=== PATIENT | female | born 1965 | race Caucasian/White ===

== ENCOUNTER → 2017-09-26 | Outpatient (CLI) | payer OTHER ==
--- NOTE | 2017-09-26 12:43 | CT ---
EXAMINATION TYPE: CT abdomen pelvis w con DATE OF EXAM: 09/26/2017 COMPARISON: None HISTORY: Abdominal pain CT DLP: 1263 mGycm CONTRAST: CT scan of the abdomen and pelvis is performed with Oral Contrast and with IV Contrast, patient injec cony with 100 mL of Isovue 300. FINDINGS: LUNG BASES-: No visible nodule. No infiltrate. LIVER/GB: No calcified gallstones. Hypoattenuating lesion at the dome of the liver measuring 1.9 cm . Lesion is nonspecific. The liver is otherwise homogeneous. Biliary tree is of normal caliber. PANCREAS: No inflammation. No distinct mass. SPLEEN: No splenic enlargement. No lesion seen. ADRENALS: No nodule. No thickening. KIDNEYS/BLADDER: No hydronephrosis. No nephrolithiasis. No distinct renal mass. Urinary bladder g rossly unremarkable. BOWEL: Normal appendix. Normal bowel caliber. No inflammation. GENITAL ORGANS: No gross abnormality. LYMPH NODES: No greater than 1cm abdominal or pelvic lymph nodes are appreciated. AORTA: No significant abnormality. OSSEOUS STRUCTURES: No significant abnormality is seen. OTHER: No evidence for hernia. IMPRESSION: 1. Nonspecific hypoattenuating hepatic lesion. Consider ultrasound correlation. 2. No acute intra-abdominal process to account for the patient's abdominal pain.
== END | disposition home or self-care (01) ==
LOC: RADCTMAIN 10:26
PROVIDERS: ATTEND Family Medicine
DX: K76.9 Liver disease, unspecified (principal)
CPT/HCPCS: 74177; Q9967

== ENCOUNTER → 2017-10-05 | Outpatient (CLI) | payer OTHER ==
--- NOTE | 2017-10-05 08:32 | US ---
EXAMINATION TYPE: US liver DATE OF EXAM: 10/05/2017 COMPARISON: Correlation CT 09/26/2017 CLINICAL HISTORY: 51-year-old female K76.9 Liver disease, unspecified. Abnormal CT TECHNIQUE: Multiple sonographic images of the right upper quadrant are obtained. FINDINGS: EXAM MEASUREMENTS: Liver Length: 12.4 cm Gallbladder Wall: 0.3 cm CBD: 0.5 cm Right Kidney: 12.4 x 3.9 x 4.8 cm Pancreas: Only the pancreatic head, neck, and a portion of the pancreatic body are visualized. The re mainder of the pancreatic body and tail are obscured due to bowel gas shadowing. The main pancreatic duct is slightly prominent at 2 mm but still within normal limits. Liver: There is a lobulated cystic-appearing area possibly with some internal septation at the right hepatic dome measuring 1.7 x 1.2 x 1.7 cm corresponding to the CT finding. Liver is normal size with homogeneous echotexture.. Gallbladder: No abnormal distention, wall thickening, pericholecystic fluid, or shadowing calculi. Evidence for sonographic Mcgill's sign: No CBD: wnl Right Kidney: No hydronephrosis. IMPRESSION: The CT finding corresponds to a lobulated cyst, possibly with a thin internal septation/minimal compl exity measuring 1.7 cm. 6-12 month follow-up ultrasound can be performed.
== END | disposition home or self-care (01) ==
LOC: RADUSWWP 07:08
PROVIDERS: ATTEND Family Medicine
DX: K76.89 Other specified diseases of liver (principal)
CPT/HCPCS: 76705

== ENCOUNTER → 2017-11-08 | Day surgery (SDC) | payer OTHER ==
[2017-11-05 15:18] VITALS: BMI 28.7
[~2017-11-08] MED LIST: LACTATED RINGERS 1,000 ML IV ONE; LIDOCAINE 1% INJ 10MG/ML (20 ML MDV) ONE; PROPOFOL 10 MG/ML 20 ML VIAL IV ONE
[2017-11-08 09:11] VITALS: RESP 16; TEMP 97.7
[2017-11-08 10:27] VITALS: BP 108/63; PULSE 62
--- NOTE | 2017-11-08 11:39 | P.PCN ---
Date of Procedure: 11/08/17 Procedure(s) Performed: Procedure: 1. Esophagogastroduodenoscopy and biopsy. 2. Total colonoscopy and biopsy. Preoperative diagnosis: Epigastric pain, diarrhea and screening for colon cancer. Postoperative diagnosis: 1. Small sliding hiatal hernia with no obvious esophagitis or complicated reflux disease. 2. Mild gastritis. 3. Normal colon and terminal ileum. 4. Biopsies obtained from the duodenum, antrum, esophagus, terminal ileum and random colon. Preparation: HalfLytely prep. Sedation: Was provided by anesthesia. Brief clinical history: The patient is a 52-year-old female who has been having issues with abdominal pain that has not responded consistently to omeprazole therapy. She also had diarrhea for many years as far as she could remember. This evaluation was scheduled for screening for neoplasia and to rule out inflammatory bowel disease, peptic ulcer disease or other pathology. Procedure: With the patient on her left lateral decubitus position and after informed consent and adequate sedation, I passed the Olympus-GIF 160 video upper endoscope through the cricopharyngeus down the esophagus. GE junction was around 34 cm from the incisors and there was a small sliding hiatal hernia but no obvious esophagitis or complicated reflux disease. The endoscope was then passed into the stomach which was insufflated with air and inspected in detail including the retroflex view in the cardia. There was some mottling and erythema in the antrum but no ulcers or erosions. Pyloric channel, duodenal bulb, post bulbar area and descending duodenum appeared within normal limits. I obtained biopsies from the duodenum, antrum and esophagus then the endoscope was withdrawn and I proceeded with the colonoscopy. Perianal area did not show any fissures or fistulas. There were no masses felt on digital rectal examination. The Olympus CFQ 160L video colonoscope was then inserted in the rectum in the usual fashion and advanced to the cecum. I intubated the ileocecal valve and examined the terminal ileum. Terminal ileum and colon appeared healthy with no edema, erythema, friability, ulceration, exudation or spontaneous bleeding. No polyps or tumors were seen or any obvious diverticular disease or other pathology. I obtained biopsies from the terminal ileum and randomly from the colon then the endoscope was retroflexed in the rectum before the endoscope was withdrawn. The patient tolerated the procedure well. Plan: The patient was reassured. Will await biopsy results. She will follow- up with you as planned and I recommended a repeat screening colonoscopy in 10 years.
== END ==
LOC: ORWHC2ENDO 07:46
DX: K29.50 Unspecified chronic gastritis without bleeding (principal); K44.9 Diaphragmatic hernia without obstruction or gangrene; R19.7 Diarrhea, unspecified; K21.9 Gastro-esophageal reflux disease without esophagitis; F90.9 Attention-deficit hyperactivity disorder, unspecified type; F41.9 Anxiety disorder, unspecified; F17.210 Nicotine dependence, cigarettes, uncomplicated; Z79.899 Other long term (current) drug therapy; Z88.0 Allergy status to penicillin; Z88.2 Allergy status to sulfonamides
CPT/HCPCS: 88305; 45380; 43239; J2001; J2704

== ENCOUNTER → 2022-01-23 | Outpatient (CLI) | payer OTHER ==
--- NOTE | 2022-01-23 21:56 | MR ---
EXAMINATION TYPE: MR lumbar spine wo con DATE OF EXAM: 01/23/2022 6:04 PM COMPARISON: None. CLINICAL INDICATION:Female, 56 years old with history of R32, R15.9 FULL INCONTINENCE FECES, M54.42 L UMBAGO; TECHNIQUE: Multi planar, multi sequence imaging was performed utilizing: T1-weighted, T2-weighted, a nd turbo inversion recovery imaging of the lumbar spine. IV Contrast: None. FINDINGS: Alignment: The lumbar vertebral bodies have preserved heights. There is retrolisthesis of L1 on L2.. Cord: The conus medullaris and the distal spinal cord appear unremarkable with regards to their signa l intensity and morphology. Bones/Discs: Degeneration changes with reactive endplate changes at L5-S1 and L1-L2.. Multilevel deg enerative disc disease is noted and most pronounced at the L1-L2. Multilevel disc desiccation is pres ent. L1-L2: Degeneration changes without significant spinal canal. Mild facet joint arthropathy with mild bilateral neural foraminal stenosis. L2-L3: No evidence of significant spinal canal stenosis or neural foraminal stenosis. L3-L4: No evidence of significant spinal canal stenosis or neural foraminal stenosis. Facet joint art hropathy present. L4-L5: No evidence of significant spinal canal stenosis or neural foraminal stenosis. Facet joint art hropathy present. L5-S1: No evidence of significant spinal canal stenosis or neural foraminal stenosis. Facet joint art hropathy present. IMPRESSION: 1. No definitive evidence of disc herniation or significant spinal canal stenosis. 2. Multilevel disc degeneration with associated osteoarthritic changes.
== END | disposition home or self-care (01) ==
LOC: RADMRIMAIN 17:15
PROVIDERS: ATTEND Internal Medicine
DX: M51.16 Intervertebral disc disorders with radiculopathy, lumbar region (principal); M47.816 Spondylosis without myelopathy or radiculopathy, lumbar region; R15.9 Full incontinence of feces; R32 Unspecified urinary incontinence
CPT/HCPCS: 72148

== ENCOUNTER → 2022-02-06 | Outpatient (CLI) | payer OTHER ==
--- NOTE | 2022-02-06 10:47 | BD ---
EXAMINATION TYPE: Axial Bone Density DATE OF EXAM: 02/06/2022 COMPARISON: NEW TO [facility] [place]... CLINICAL HISTORY: 56 years year old Female. ICD-10 CODE: M85.89 OSTEOPENIA OF MULTIPLE SITES Height: 59 Weight: 132 FRAX RISK QUESTIONS: Family History (Parent hip fracture): YES 5. Chronic liver disease: FATTY LIVER Current Tobacco Use: YES RISK FACTORS HISTORY OF: Surgery to Spine BURNED NERVE ENDINGS, LOWER BACK ONLY...NO BONE SURG Family History of Osteoporosis: YES, MOTHER WITH HIP FX WELL MATERNAL GRANDMOTHER Diet low in dairy products/other sources of calcium: YES Postmenopausal woman: YES, AT AGE 50 YRS OLD Hyperparathyroidism: NO Adrenal Insufficiency: NO MEDICATIONS: Additional Medications: BP MEDS, ZOLOFT, REFLUX MEDS, Additional History: HYPERTENSION, ANXIETY, REFLUX, EXAM MEASUREMENTS: Bone mineral densitometry was performed using the Impraise System. Bone mineral density as measured about the Lumbar spine is: ----- L1-L4(G/cm2): 0.932 T Score Values are as follows: ----- L1: -1.0 ----- L2: -1.8 ----- L3: -2.9 ----- L4: -2.5 ----- L1-L4: -2.1 Bone mineral density FIRST DEXA AT [facility] [place] Bone mineral density about the R hip (g/cm2): 0.783 Bone mineral density about the L hip (g/cm2): 0.826 T Score values are as follows: -----R Neck: -2.3 -----L Neck: -2.0 -----R Total: -1.8 -----L Total: -1.4 Bone mineral density FIRST DEXA AT [facility] [place] FRAX%s: The graph provided illustrates a 17.0% chance for a major osteoporotic fx and a 2.6% chance f or the hips probability for fx in 10 years time. IMPRESSION: Osteoporosis (T Score less than -2.5). There is increased fracture risk and therapy is usually indicated based on age. Re-Screen 1-2 years. NOTE: T-SCORE=SD OF THE YOUNG ADULT MEAN.
== END | disposition home or self-care (01) ==
LOC: RADBDWWP 09:59
PROVIDERS: ATTEND Internal Medicine
DX: M85.89 Other specified disorders of bone density and structure, multiple sites (principal); M81.0 Age-related osteoporosis without current pathological fracture; I10 Essential (primary) hypertension
CPT/HCPCS: 77080

== ENCOUNTER 2022-02-20 14:08 | Emergency (ER) | payer OTHER ==
--- NOTE | 2022-02-20 14:57 | ED ---
Back Pain HPI - General Source: RN notes reviewed <Bela Ardon - Last Filed: 02/20/22 15:03> - General Source: patient, family, RN notes reviewed, old records reviewed - History of Present Illness MD Complaint: back pain, other (right sided abd pain) Similar Symptoms Previously: Yes (chronic back pain) Severity scale (1-10): 8 <Anjum Lema - Last Filed: 02/21/22 01:27> - General Stated Complaint: back pain Time Seen by Provider: 02/20/22 14:57 - History of Present Illness Initial Comments: Patient is a 56-year-old female who presents to the emergency department with a chief complaint of back pain. Patient has chronic back pain which she states has been well managed until when patient sustained a fall in her sister's basement, landing on her bottom. Since then patient has felt increased pain in her lower middle back which has been worsening as of lately. There is numbness and tingling down the right thigh and into the right knee. Patient's primary care provider ordered lumbar MRI in January and prescribes her Motrin/muscle relaxers which she is out of. Patient expresses concern pain is affecting her activities of daily living. Patient also reports daily episodes of urinary and stool incontinence which has been occurring since the fall on . Describes it as an inability to control her bladder and bowels. No saddle anesthesia. She does have an appointment with orthopedic surgeon in March. No fevers, chills, weight loss, abdominal pain burning with urination, blood in urine. (Bela Ardon) 56-year-old female presents to the emergency room with her fianc complaining of chronic low back pain since December 29 and right-sided abdominal pain that started today. Patient states that she has been unable to get into the orthopedic doctor for her chronic back pain which she sustained after falling December 29. She has had an MRI that was ordered by her primary care doctor for bowel and bladder incontinence and no evidence of fracture. She has also had a bone density scan and told she has osteoporosis. She was referred to orthopedics however they do not accept her insurance. She continues to have low back pain. Today she developed right upper and right lower quadrant abdominal pain. Denies any fevers, no nausea vomiting or diarrhea. No previous abdominal surgeries. (Anjum Lema) - Related Data Home Medications Medication Instructions Recorded Confirmed ALPRAZolam [Xanax] 1 - 2 tab PO DAILY PRN 11/05/17 11/08/17 Dextroamphetamine/Amphetamine 30 mg PO QAM 11/05/17 11/08/17 [Adderall Xr] Omeprazole 1 tab PO DAILY 11/05/17 11/08/17 Previous Rx's Medication Instructions Recorded Cephalexin [Keflex] 500 mg PO Q12HR 10 Days #20 cap 02/20/22 Lidocaine 5% Patch [Lidoderm] 1 patch TOPICAL DAILY 14 Days #14 02/20/22 patch Allergies Allergy/AdvReac Type Severity Reaction Status Date / Time Penicillins Allergy Rash/Hives Verified 02/20/22 15:35 Sulfa (Sulfonamide Allergy Rash/Hives Verified 02/20/22 15:35 Antibiotics) Review of Systems ROS Other: All systems not noted in ROS Statement are negative. <Bela Ardon - Last Filed: 02/20/22 15:03> ROS Other: All systems not noted in ROS Statement are negative. <Anjum Lema - Last Filed: 02/21/22 01:27> ROS Statement: Those systems with pertinent positive or pertinent negative responses have been documented in the HPI. Past Medical History Additional Past Medical History / Comment(s): abdominal pain, diarhea History of Any Multi-Drug Resistant Organisms: None Reported Past Surgical History: Bladder Surgery, Orthopedic Surgery, Tubal Ligation Additional Past Surgical History / Comment(s): bladder suspension, sx on knee and arm Past Anesthesia/Blood Transfusion Reactions: No Reported Reaction Past Psychological History: ADD/ADHD, Anxiety Past Alcohol Use History: Occasional Additional Past Alcohol Use History / Comment(s): off and on, smokes less than 1ppd from age 17 Past Drug Use History: None Reported - Past Family History Father Family Medical History: Cancer Mother Additional Family Medical History / Comment(s): brain aneurysm <Bela Ardon - Last Filed: 02/20/22 15:03> General Exam General appearance: alert, in no apparent distress Head exam: Present: atraumatic Eye exam: Absent: scleral icterus, conjunctival injection ENT exam: Present: mucous membranes moist Respiratory exam: Absent: respiratory distress, accessory muscle use Cardiovascular Exam: Present: bradycardia GI/Abdominal exam: Present: soft, tenderness (right upper and right lower). Absent: distended, guarding, rebound, rigid Extremities exam: Present: normal inspection, normal capillary refill. Absent: tenderness, pedal edema, joint swelling, calf tenderness Neurological exam: Present: alert, oriented X3 Psychiatric exam: Present: normal affect, normal mood Skin exam: Present: warm, dry, normal color. Absent: cyanosis, diaphoretic, petechiae, pallor <Anjum Lema - Last Filed: 02/21/22 01:27> Course Vital Signs 02/20/22 02/20/22 02/20/22 15:29 19:47 21:25 Temperature 98.1 F 97.9 F Pulse Rate 58 L 53 L 58 L Respiratory 18 17 16 Rate Blood Pressure 138/80 164/89 143/76 O2 Sat by Pulse 98 98 97 Oximetry Medical Decision Making - Lab Data Result diagrams: 02/20/22 19:27 02/20/22 19:27 <Anjum Lema - Last Filed: 02/21/22 01:27> - Medical Decision Making Vital signs are stable. CBC and electrolytes are unremarkable. Urinalysis shows positive urinary tract infection. She was given a gram of Rocephin in the emergency room. She was also given Benadryl Toradol and IV fluids for nausea and back pain. CT of the abdomen and pelvis performed due to patient's right-sided abdominal pain. Mild atelectasis at the lung bases. Large urinary bladder could relate to some bladder outlet obstruction. There are some clips within the right lower quadrant consistent with appendectomy however patient states she's had no abdominal surgeries. There is no evidence for bowel obstruction. Gallbladder appears normal. No bile ducts dilated. CT lumbar spine shows spondylitic changes no acute fracture, no bony spinal stenosis. MRI performed January with bone density testing, patient states has osteoporosis. Patient's back pain is consistent with her chronic back pain which she is being evaluated for by her primary care orthopedics. She was given a prescription for Keflex for UTI. Lidoderm patches for her back pain. Continue Tylenol and Motrin for pain and discomfort and follow-up with orthopedics and her primary care doctor for continuation of care. She is agreeable to this plan of care Ccase discussed with Dr. Garcia Was pt. sent in by a medical professional or institution? @ -no Did you speak to anyone other than the patient for history? @ -no Did you review nursing and triage notes? @ -yes however patient also complaining of abd pain Were old charts reviewed? @ -yes MRI Differential Diagnosis? @ -Differential Back Pain: Strain, zoster, cauda equina syndrome, epidural abscess, vertebral osteomyelitis, discitis, fracture, subluxation, disc herniation, DJD, spinal stenosis, dissection, AAA, pancreatitis, peptic ulcer disease, pyelonephritis, kidney stone, this is not meant to be an all-inclusive list. Differential Abdominal Pain Women: Appendicitis, Cholecystitis, diverticulosis, ischemic bowel, pancreatitis, hepatitis, UTI, gastroenteritis, AAA, incarcerated hernia, bowel obstruction, constipation, inflammatory bowel, hepatitis, peptic ulcer disease, splenic infarction, perforated viscus, vulvitis, ovarian torsion, PID, kidney stone, placenta abruption, this is not meant to be an all-inclusive list CT interpreted by me (1pt min.)? @ -No U/S interpreted by me (1pt. min.)? @ -[none] What testing was considered but not performed? (CT, X-rays, U/S, labs)? Why? @ No What meds were considered but not given? Why? @ -Antibiotics were considered however there is no evidence of appendicitis or diverticulitis Did you discuss the management of the patient with other professionals? @ -No Did you reconcile home meds? @ -no Was smoking cessation discussed for >3mins.? @ -no Was critical care preformed (if so, how long)? @ -no Were there social determinants of health that impacted care today? How? (Homelessness, low income, unemployed, alcoholism, drug addiction, transportation, low edu. Level, literacy, decrease access to med. care, halfway, rehab)? @ -none Was there de-escalation of care discussed even if they declined? (Discuss DNR or withdrawal of care, Hospice)? @ -no What co-morbidities impacted this encounter? (DM, HTN, Smoking, COPD, CAD, Cancer, CVA, Hep., AIDS, mental health diagnosis, sleep apnea, morbid obesity)? @ -no Was patient admitted / discharged? @ -discharged Undiagnosed new problem with uncertain prognosis? @ -[none] Drug Therapy requiring intensive monitoring for toxicity (Heparin, Nitro, Insulin, Cardizem)? @ -no Were any procedures done? @ -no Diagnosis/symptom? @ -abdominal pain, UTI, chronic back pain Acute, or Chronic, or Acute on Chronic? @ -acute, and chronic back pain Uncomplicated (without systemic symptoms) or Complicated (systemic symptoms)? @ -[default] Side effects of treatment? @ -[none] Exacerbation, Progression, or Severe Exacerbation] @ -[no] Poses a threat to life or bodily function? @ -no (Anjum Lema) - Lab Data Lab Results 02/20/22 02/20/22 02/20/22 Range/Units 19:27 19:27 19:27 WBC 9.8 (3.8-10.6) k/uL RBC 4.76 (3.80-5.40) m/uL Hgb 15.1 (11.4-16.0) gm/dL Hct 45.5 (34.0-46.0) % MCV 95.5 (80.0-100.0) fL MCH 31.7 (25.0-35.0) pg MCHC 33.2 (31.0-37.0) g/dL RDW 12.6 (11.5-15.5) % Plt Count 393 (150-450) k/uL MPV 7.0 Neutrophils % 54 % Lymphocytes % 34 % Monocytes % 4 % Eosinophils % 6 % Basophils % 2 % Neutrophils # 5.3 (1.3-7.7) k/uL Lymphocytes # 3.3 (1.0-4.8) k/uL Monocytes # 0.4 (0-1.0) k/uL Eosinophils # 0.6 (0-0.7) k/uL Basophils # 0.2 (0-0.2) k/uL Sodium 137 (137-145) mmol/L Potassium 3.9 (3.5-5.1) mmol/L Chloride 106 (98-107) mmol/L Carbon Dioxide 27 (22-30) mmol/L Anion Gap 4 mmol/L BUN 8 (7-17) mg/dL Creatinine 0.60 (0.52-1.04) mg/dL Est GFR (CKD-EPI)AfAm >90 (>60 ml/min/1.73 sqM) Est GFR (CKD-EPI)NonAf >90 (>60 ml/min/1.73 sqM) Glucose 88 (74-99) mg/dL Plasma Lactic Acid Femi (0.7-2.0) mmol/L Calcium 8.9 (8.4-10.2) mg/dL Total Bilirubin 1.2 (0.2-1.3) mg/dL AST 23 (14-36) U/L ALT 19 (4-34) U/L Alkaline Phosphatase 69 (38-126) U/L Total Protein 6.4 (6.3-8.2) g/dL Albumin 4.0 (3.5-5.0) g/dL Amylase 55 (30-110) U/L Lipase 91 (23-300) U/L Urine Color Yellow Urine Appearance Cloudy H (Clear) Urine pH 5.5 (5.0-8.0) Ur Specific Telephone 1.012 (1.001-1.035) Urine Protein Negative (Negative) Urine Glucose (UA) Negative (Negative) Urine Ketones Negative (Negative) Urine Blood Negative (Negative) Urine Nitrite Positive H (Negative) Urine Bilirubin Negative (Negative) Urine Urobilinogen <2.0 (<2.0) mg/dL Ur Leukocyte Esterase Small H (Negative) Urine RBC 1 (0-5) /hpf Urine WBC 9 H (0-5) /hpf Ur Squamous Epith Cells 1 (0-4) /hpf Urine Bacteria Few H (None) /hpf Urine Mucus Many H (None) /hpf 02/20/22 Range/Units 19:27 WBC (3.8-10.6) k/uL RBC (3.80-5.40) m/uL Hgb (11.4-16.0) gm/dL Hct (34.0-46.0) % MCV (80.0-100.0) fL MCH (25.0-35.0) pg MCHC (31.0-37.0) g/dL RDW (11.5-15.5) % Plt Count (150-450) k/uL MPV Neutrophils % % Lymphocytes % % Monocytes % % Eosinophils % % Basophils % % Neutrophils # (1.3-7.7) k/uL Lymphocytes # (1.0-4.8) k/uL Monocytes # (0-1.0) k/uL Eosinophils # (0-0.7) k/uL Basophils # (0-0.2) k/uL Sodium (137-145) mmol/L Potassium (3.5-5.1) mmol/L Chloride (98-107) mmol/L Carbon Dioxide (22-30) mmol/L Anion Gap mmol/L BUN (7-17) mg/dL Creatinine (0.52-1.04) mg/dL Est GFR (CKD-EPI)AfAm (>60 ml/min/1.73 sqM) Est GFR (CKD-EPI)NonAf (>60 ml/min/1.73 sqM) Glucose (74-99) mg/dL Plasma Lactic Acid Femi 0.9 (0.7-2.0) mmol/L Calcium (8.4-10.2) mg/dL Total Bilirubin (0.2-1.3) mg/dL AST (14-36) U/L ALT (4-34) U/L Alkaline Phosphatase (38-126) U/L Total Protein (6.3-8.2) g/dL Albumin (3.5-5.0) g/dL Amylase (30-110) U/L Lipase (23-300) U/L Urine Color Urine Appearance (Clear) Urine pH (5.0-8.0) Ur Specific Telephone (1.001-1.035) Urine Protein (Negative) Urine Glucose (UA) (Negative) Urine Ketones (Negative) Urine Blood (Negative) Urine Nitrite (Negative) Urine Bilirubin (Negative) Urine Urobilinogen (<2.0) mg/dL Ur Leukocyte Esterase (Negative) Urine RBC (0-5) /hpf Urine WBC (0-5) /hpf Ur Squamous Epith Cells (0-4) /hpf Urine Bacteria (None) /hpf Urine Mucus (None) /hpf Disposition <Bela Ardon - Last Filed: 02/20/22 15:03> Is patient prescribed a controlled substance at d/c from ED?: No Time of Disposition: 21:40 <Anjum Lema - Last Filed: 02/21/22 01:27> Clinical Impression: UTI (urinary tract infection), Chronic back pain Disposition: HOME SELF-CARE Condition: Good Instructions (If sedation given, give patient instructions): Urinary Tract Infection in Women (ED), Chronic Back Pain (DC) Additional Instructions: Follow-up with your primary care doctor next week to have your urinalysis retested. Take antibiotics as prescribed. Increase your fluid intake. Please follow-up with orthopedics regarding your chronic back pain. Use Lidoderm patches for pain relief along with Tylenol and Motrin. Prescriptions: Cephalexin [Keflex] 500 mg PO Q12HR 10 Days #20 cap Lidocaine 5% Patch [Lidoderm] 1 patch TOPICAL DAILY 14 Days #14 patch Referrals: Ayden Cardona MD [Primary Care Provider] - 1-2 days Eliza Anderson DO [Doctor of Osteopathic Medicine] - 1-2 days Anil Ozuna DO [Doctor of Osteopathic Medicine] - 1-2 days
[2022-02-20] MEDS ORDERED: diphenhydrAMINE 50 MG/ML 1 ML VIAL IVP STA (18:54)
[2022-02-20] MEDS ORDERED: SODIUM CHLORIDE 0.9% 1,000 ML IV STA (18:54)
[2022-02-20] MEDS ORDERED: KETOROLAC 15 MG/ML 1 ML VIAL IVP STA (18:54)
[2022-02-20 19:58] LABS: Basophils # (A) 0.2 k/uL (0-0.2); Basophils % (A) 2 %; Eosinophils # (A) 0.6 k/uL (0-0.7); Eosinophils % (A) 6 %; HCT 45.5 % (34.0-46.0); HGB 15.1 gm/dL (11.4-16.0); Lymphocytes # (A) 3.3 k/uL (1.0-4.8); Lymphocytes % (A) 34 %; MCH 31.7 pg (25.0-35.0); MCHC 33.2 g/dL (31.0-37.0); MCV 95.5 fL (80.0-100.0); Monocytes # (A) 0.4 k/uL (0-1.0); Monocytes % (A) 4 %; Neutrophils # (A) 5.3 k/uL (1.3-7.7); Neutrophils % (A) 54 %; Platelet Count 393 k/uL (150-450); RBC 4.76 m/uL (3.80-5.40); RDW 12.6 % (11.5-15.5); WBC 9.8 k/uL (3.8-10.6)
[2022-02-20 20:07] LABS: Appearance,Urine Cloudy (Clear); Bacteria,Urine Few /hpf; Bilirubin,Urine Negative (Negative); Blood,Urine Negative (Negative); Color,Urine Yellow; Glucose,Urine (UA) Negative (Negative); Ketones,Urine Negative (Negative); Leukocyte Esterase,Urine Small (Negative); Mucus,Urine Many /hpf; Nitrite,Urine Positive (Negative); PH, Urine 5.5 (5.0-8.0); Protein,Urine Negative (Negative); RBC,Urine 1 /hpf (0-5); Specific Gravity,Urine 1.012 (1.001-1.035); Squamous Epithelial Cell,Urine 1 /hpf (0-4); Urobilinogen,Urine <2.0 mg/dL (<2.0); WBC,Urine 9 /hpf (0-5)
[2022-02-20 20:35] LABS: ALT 19 U/L (4-34); AST 23 U/L (14-36); African American GFR (CKD) >90 (>60 ml/min/1.73 sqM); Alkaline Phosphatase 69 U/L (38-126); Amylase 55 U/L (30-110); Anion Gap 4 mmol/L; Blood Urea Nitrogen 8 mg/dL (7-17); Calcium 8.9 mg/dL (8.4-10.2); Carbon Dioxide 27 mmol/L (22-30); Chloride 106 mmol/L (98-107); Glucose 88 mg/dL (74-99); Lipase 91 U/L (23-300); Non-African American GFR(CKD) >90 (>60 ml/min/1.73 sqM); Potassium 3.9 mmol/L (3.5-5.1); Sodium 137 mmol/L (137-145); Total Bilirubin 1.2 mg/dL (0.2-1.3); Total Protein 6.4 g/dL (6.3-8.2)
[2022-02-20] MEDS ORDERED: cefTRIAXone IN SWFI 1,000 MG/10 ML SYRINGE IVP STA (20:48)
--- NOTE | 2022-02-20 21:20 | CT ---
EXAMINATION TYPE: CT abdomen pelvis w con DATE OF EXAM: 02/20/2022 COMPARISON: 09/26/2017 HISTORY: pain. CT DLP: 1434.4 (combined) mGycm Automated exposure control for dose reduction was used. CONTRAST: Performed with IV Contrast, patient injected with 100ml mL of Isovue 300. Images obtained from the diaphragm to the floor the pelvis with the IV contrast. There is some mild atelectasis at the lung bases. No pleural effusion. Heart size is normal. No peric ardial effusion. There are small hepatic cysts that measure up to 2 cm. Spleen is intact. No pancreatic mass. Stomach is intact. Gallbladder appears normal. The bile ducts are not dilated. There is no adrenal mass. Kidneys are normal size and contour. There is normal contrast opacification of the kidneys. No hydronephrosis. Bladder distends smoothly. No inguinal hernia. No free fluid in t he pelvis. No pelvic mass. No inguinal hernia. Urinary bladder is large and measures 11.5 cm. Lumbar vertebra appear intact. There is narrowing at L5-S1 and L1-2 disc spaces with spurring. No compressio n fracture. The bony pelvis is intact. The hip joints are intact. Uterus is anteverted. There are clips in the right lower quadrant probably from appendectomy. No mese nteric edema. No ascites or free air. No sign of a bowel obstruction. IMPRESSION: There is some mild atelectasis at the lung bases which is new compared to old exam. Large urinary herminio dder could relate to some bladder outlet obstruction.
[2022-02-20 21:26] VITALS: BP 143/76; PULSE 58; RESP 16; TEMP 97.9
--- NOTE | 2022-02-20 21:28 | CT ---
EXAMINATION TYPE: CT lumbar spine w con DATE OF EXAM: 02/20/2022 COMPARISON: HISTORY: pain CT DLP: combined 1434.4 mGycm Automated exposure control for dose reduction was used. CONTRAST: Performed with IV Contrast, patient injected with 100ml mL of Isovue 300. The lumbar vertebrae have normal alignment. There is moderate narrowing of the disc spaces of L5-S1 a nd L1-2 with spurring and sclerosis of the endplates. No compression fracture. No lumbar paraspinal m ass. The sacroiliac joints appear intact. Facet joints are intact. IMPRESSION: Spondylotic changes as above. No fracture. No bony spinal stenosis.
== END 2022-02-20 21:56 | disposition home or self-care (01) ==
LOC: EC 14:08
DX: N39.0 Urinary tract infection, site not specified (principal); G89.29 Other chronic pain; M54.9 Dorsalgia, unspecified; F41.9 Anxiety disorder, unspecified; Z88.0 Allergy status to penicillin; Z88.2 Allergy status to sulfonamides
CPT/HCPCS: 36415; 80053; 82150; 83605; 83690; 85025; 81001; 72132; 74177; 99285; 96374; 96375 ×2; 96361; J1200; J0696; J1885; Q9967